=== PATIENT | male | born 1960 | race Two or more races ===

== ENCOUNTER → 2018-05-15 | Outpatient (CLI) | payer OTHER ==
[~2018-05-15] MED LIST: PERCOCET 5/321 UDTAB PO; POLY119PG PO; RECTICARE30 GM TP; TRAM1TAB98 PO
== END | disposition home or self-care (01) ==
LOC: NUCLEAR 07:23
DX: I20.8 Other forms of angina pectoris (principal); N40.0 Benign prostatic hyperplasia without lower urinary tract symptoms
CPT/HCPCS: 93880; 78452; 93017; J0153; A9500